=== PATIENT | female | born 1995 | race Caucasian/White ===

== ENCOUNTER 2021-06-05 08:41 | Emergency (ER) | payer BC ==
[~2021-06-05] VITALS: Ht 175.3 cm; Wt 120.2 kg
--- NOTE | 2021-06-05 09:59 | PHYS DOC ---
Past History Additional Past Medical Histor: lupus, fibromyalgia Past Surgical History: , Tonsillectomy Alcohol Use: None General Adult EDM: Chief Complaint: COUGH HPI: HPI: Patient is a 25 year old female who presents with cough x1 week. Productive of white sputum. Over the past 2 days has had increasing shortness of breath and chest tightness. She also complains of sinus congestion and mild sore throat. No fevers or chills she is also had some diarrhea. No loss of taste or smell. 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 She is not vaccinated for Covid. Her has been having diarrheal spells and abdominal cramping at home. not on ocps no new leg swelling. no immobilization. No recent surgeries. Review of Systems: Review of Systems: Constitutional: Denies fever or chills Eyes: Denies change in visual acuity HENT: + nasal congestion and sore throat Respiratory: + cough and shortness of breath Cardiovascular: + chest tightness. Denies edema GI: Denies abdominal pain, nausea, vomiting, bloody stools. + diarrhea : Denies dysuria Musculoskeletal: Denies back pain or joint pain Integument: Denies rash Neurologic: Denies headache, focal weakness or sensory changes Endocrine: Denies polyuria or polydipsia Lymphatic: Denies swollen glands Psychiatric: Denies depression or anxiety Family History: Family History: No pertinent family hx Physical Exam: PE: Constitutional: Well developed, well nourished, no acute distress, non-toxic appearance. [] HENT: Sounds congested. Normocephalic, atraumatic, bilateral external ears normal, oropharynx moist, no oral exudates, nose normal. [] Eyes: PERRLA, EOMI, conjunctiva normal, no discharge. [] Neck: Normal range of motion, no tenderness, supple, no stridor. [] Cardiovascular:Heart rate regular rhythm, no murmur [] Lungs & Thorax: Bilateral breath sounds clear to auscultation [] Abdomen: Bowel sounds normal, soft, no tenderness, no masses, no pulsatile masses. [] Skin: Warm, dry, no erythema, no rash. [] Back: No tenderness, no CVA tenderness. [] Extremities: No tenderness, no cyanosis, no clubbing, ROM intact, no edema. [] Neurologic: Alert and oriented X 3, normal motor function, normal sensory function, no focal deficits noted. [] Psychologic: Affect normal, judgement normal, mood normal. [] Current Patient Data: Vital Signs: Vital Signs Date Time Temp Pulse Resp B/P (MAP) Pulse Ox O2 Delivery O2 Flow Rate FiO2 06/05/21 09:01 98.5 99 18 146/96 98 Room Air EKG: EKG: Sinus rhythm. Rate 80. Inferior Q waves. No acute ischemic changes. [] Radiology/Procedures: Radiology/Procedures: [] Impressions: [address] [address] IMAGING REPORT Signed PATIENT: MARY SPRING ACCOUNT: [id number] : 1995 LOCATION: ER AGE: 25 SEX: F EXAM STATUS: REG ER ORD. PHYSICIAN: YUSEF BARRERA MD REASON: sob, productive cough PROCEDURE: CHEST AP ONLY XR CHEST 1V History: Reason: sob, productive cough / Spl. Instructions: / History: Comparison: None. Findings: No consolidation or pleural effusion. Normal heart size. No pneumothorax. Impression: 1. No acute cardiopulmonary process. Electronically signed by: Aamir Sin DO (06/05/2021 10:15 AM) [id number] DICTATED AND SIGNED BY: AAMIR SIN DO DATE: 06/05/21 1015 CC: YUSEF BARRERA MD; CATY PRESLEY PAC ~MTH0 0 Heart Score: C/O Chest Pain: Yes HEART Score for Chest Pain: HEART Score for Chest Pain Response (Comments) Value History Slighlty/Non-Suspicious 0 ECG Nonspecific Repolarizatio 1 Age < 45 0 Risk Factors No Risk Factors 0 Troponin < Normal Limit 0 Total 1 Risk Factors: Risk Factors: DM, Current or recent (<one month) smoker, HTN, HLP, family history of CAD, obesity. Risk Scores: Score 0 - 3: 2.5% MACE over next 6 weeks - Discharge Home Course & Med Decision Making: Course & Med Decision Making Pertinent Labs and Imaging studies reviewed. (See chart for details) Patient is a 25-year-old female with 1 week of cough, congestion, sore throat. Over the past couple of days has had some increasing shortness of breath and chest tightness. On arrival is afebrile, hemodynamically stable. Satting well on room air. Normal work of breathing on examination. Lungs are clear to auscultation and radiographically on chest x-ray. Overall is well-appearing. CBC, CMP normal. EKG shows inferior Q waves, so troponin was added and is negative. Heart score is 1. Very low risk for ACS. Do not feel that she requires admission for chest pain work-up. Covid swab is sent and is pending at time of discharge. Patient return precautions reviewed. [employer] Disclaimer: [employer] Disclaimer: This electronic medical record was generated, in whole or in part, using a voice recognition dictation system. Departure Departure: Disposition: HOME / SELF CARE / HOMELESS Condition: IMPROVED Referrals: PCP,NO (PCP) Please schedule appoint with your PCP Additional Instructions: Your chest x-ray, labs, vital signs, and exam are very reassuring. You likely have a viral process. Her Covid test is pending. Please self isolate until you have the results of this test. Please follow-up with your primary care doctor. If you have worsening shortness of breath, chest pain, or other new/concerning symptoms please return to the emergency department for reevaluation. YUSEF BARRERA MD Jun 05, 2021 09:59
--- NOTE | 2021-06-05 10:18 | RAD ---
XR CHEST 1V History: Reason: sob, productive cough / Spl. Instructions: / History: Comparison: None. Findings: No consolidation or pleural effusion. Normal heart size. No pneumothorax. Impression: 1. No acute cardiopulmonary process. Electronically signed by: Aamir Sin DO (06/05/2021 10:15 AM) [id number]
[2021-06-05 10:54] LABS: BASO % 1 % (0-3); EOS # 0.1 x10^3/uL (0.0-0.7); EOS % 1 % (0-3); HEMATOCRIT 39.6 % (36.0-47.0); HEMOGLOBIN 13.3 g/dL (12.0-15.5); LYMPH # 1.1 x10^3/uL (1.0-4.8); LYMPH % 21 % (24-48); MEAN CORPUSCULAR HEMOGLOBIN 30 pg (25-35); MEAN CORPUSCULAR HGB CONC 34 g/dL (31-37); MEAN CORPUSCULAR VOLUME 89 fL (79-100); MONO # 0.6 x10^3/uL (0.0-1.1); MONO % 12 % (0-9); NEUT # 3.4 x10^3uL (1.8-7.7); NEUT % 66 % (31-73); PLATELET COUNT 293 x10^3/uL (140-400); RED BLOOD COUNT 4.46 x10^6/uL (3.50-5.40); RED CELL DISTRIBUTION WIDTH 14.8 % (11.5-14.5); WHITE BLOOD COUNT 5.1 x10^3/uL (4.0-11.0)
--- NOTE | 2021-06-05 11:00 | EKG ---
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
[2021-06-05 11:03] LABS: CALCIUM 8.8 mg/dL (8.5-10.1); CREATININE 0.9 mg/dL (0.6-1.0); GFR 75.7; POTASSIUM 4.5 mmol/L (3.5-5.1)
[2021-06-05 11:09] LABS: ALBUMIN 3.3 g/dL (3.4-5.0); ALBUMIN/GLOBULIN RATIO 0.8 (1.0-1.7); TOTAL BILIRUBIN 0.1 mg/dL (0.2-1.0); TOTAL PROTEIN 7.7 g/dL (6.4-8.2)
[2021-06-05 11:56] VITALS: BP 146/93
== END 2021-06-05 12:20 | disposition home or self-care (01) ==
LOC: ER 08:41
DX: U07.1 COVID-19 (principal); R19.7 Diarrhea, unspecified; M79.7 Fibromyalgia; Z98.890 Other specified postprocedural states
CPT/HCPCS: 36415; 71045; 80053; 84484; 85025; 93005; 99285; C9803; U0003

== ENCOUNTER 2021-12-30 15:27 | Emergency (ER) | payer BC ==
[~2021-12-30] VITALS: Ht 175.3 cm; Wt 120.2 kg
[2021-12-30] MEDS ORDERED: ONDANSETRON PF 4 MG/2 ML VIAL. ONE (15:42)
[2021-12-30] MEDS ORDERED: IV NORMAL SALINE 1,000ML 1,000 ML IV ONE ×2 (16:00→19:15)
--- NOTE | 2021-12-30 16:00 | PHYS DOC ---
Past History Additional Past Medical Histor: lupus, fibromyalgia (FIDENCIO COLES DO) Past Surgical History: , Tonsillectomy (FIDENCIO COLES DO) Alcohol Use: None (FIDENCIO COLES DO) Adult General Chief Complaint Chief Complaint: MULTIPLE COMPLAINTS HPI HPI Patient is a 26-year-old female presenting via POV for multiple complaints. First, she fears she is and she is she has unknown last day menstrual period. She is requesting evaluation for this today. Also reports that she has just not been feeling right with tension type headache, nausea, and intermittent chest pain that has been on and off all day today with generalized fatigue and malaise. She also had an episode of nonbloody nonbilious emesis which is obviously not normal for her. She states that time she is also had tingling in her legs. Symptoms have been ongoing for several hours which concerned her and prompting transport to our ER for evaluation. Patient at first denied any medical issues, no medications on a daily basis. 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 She has never had a heart attack or other concerning sequelae from lupus, no other noteworthy events. Denies alcohol tobacco or illicit drug abuse (FIDENCIO COLES DO) Review of Systems Review of Systems Fourteen body systems of review of systems have been reviewed. See HPI for pertinent positives and negative responses, other gary all other systems are negative, non-pertinent or non-contributory (FIDENCIO COLES DO) Current Medications Current Medications Current Medications Medications (Trade) Dose Ordered Sig/Sean Start Time Stop Time Status Last Admin Dose Admin Ondansetron HCl (Zofran) 4 mg STK-MED ONCE 12/30/21 15:42 12/30/21 15:43 DC (FIDENCIO COLES DO) Physical Exam Physical Exam Constitutional: Well developed, well nourished and obese, no acute distress, non-toxic appearance. HENT: Normocephalic, atraumatic, bilateral external ears normal, oropharynx dry with poor dentition, no oral exudates, nose normal. Eyes: PERRLA, EOMI, conjunctiva normal, no discharge. Neck: Normal range of motion, no tenderness, supple, no stridor. Cardiovascular: Heart rate regular, sinus rhythm, no murmurs rubs or gallops Lungs & Thorax: Bilateral breath sounds clear to auscultation Abdomen: Bowel sounds normal, soft, no tenderness, no masses, no pulsatile masses. Nonsurgical abdomen, no peritoneal signs Skin: Warm, dry, no erythema, no rash. Back: No tenderness, no CVA tenderness. Extremities: No tenderness, no cyanosis, no clubbing, ROM intact, no edema. Neurologic: Alert and oriented X 3, grossly normal motor & sensory function, no focal deficits noted. Psychologic: Odd affect, depressed mood (FIDENCIO COLES DO) EKG EKG EKG ordered and interpreted by myself at 1546 hrs. as sinus tachycardia at 120 bpm, prolonged QTC at 514 otherwise unremarkable intervals, no axis deviation, T wave inversion noted in lead III and aVF, no acute ischemic findings, no STEMI (FIDENCIO COLES DO) Radiology/Procedures Radiology/Procedures [] (FIDENCIO COLES DO) Radiology/[place] [address] IMAGING REPORT Signed PATIENT: MARY SPRING ACCOUNT: [id number] : 1995 LOCATION: ER AGE: 26 SEX: F EXAM STATUS: REG ER ORD. PHYSICIAN: FIDENCIO COLES DO REASON: Chest pain PROCEDURE: CHEST AP ONLY EXAM: CHEST ONE VIEW. HISTORY: Chest pain. COMPARISON: 06/05/2021. FINDINGS: A frontal view of the chest is obtained. There are no confluent infiltrates. There is no pneumothorax or pleural effusion. The heart is not enlarged. IMPRESSION: 1. No confluent infiltrates. Electronically signed by: Elizabeth Menon MD (12/30/2021 6:12 PM) [id number] DICTATED AND SIGNED BY: YUSEF MENON MD DATE: 12/30/211810 CC: FIDENCIO COLES DO; CATY PRESLEY PAC ~MTH0 0 (ANDRES ROBERTSON MD) Heart Score C/O Chest Pain: Yes HEART Score for Chest Pain: HEART Score for Chest Pain Response (Comments) Value History Slighlty/Non-Suspicious 0 ECG Normal 0 Age < 45 0 Risk Factors No Risk Factors 0 Troponin < Normal Limit 0 Total 0 Risk Factors: Risk Factors: DM, Current or recent (<one month) smoker, HTN, HLP, family history of CAD, obesity. Risk Scores: Risk Factors: DM, Current or recent (<one month) smoker, HTN, HLP, family history of CAD, obesity. (FIDENCIO COLES DO) Course & Med Decision Making Course & Med Decision Making Airway patent, breathing unlabored, patient tachycardic and hyperventilating on arrival otherwise hemodynamically stable HPI and physical exam obtained, IV access obtained to proceed diagnostic work-up and patient had vagal episode during blood draw turning pale and passing out with subsequent hypotensive episode. This was self-limited in nature and self resolved and several seconds without trauma, fall etc. Subsequent diagnostic work-up obtained and pending at time of my shift ending. I gave comprehensive signout to oncoming physician, please defer to Dr. Robertson's documentation regarding future care of patient in ER setting (FIDENCIO COLES DO) Course & Med Decision Making See Dr. Coles chart for details prior shift change. Impression: 1. Dehydration 2. Viral Syndrome Push fluids and take tylenol and ibuprofen for discomfort. Follow up with primary. Return if any concerns. (ANDRES ROBERTSON MD) Dragon Disclaimer Dragon Disclaimer This electronic medical record was generated, in whole or in part, using a voice recognition dictation system. (FIDENCIO COLES DO) Departure Departure: Disposition: 01 HOME / SELF CARE / HOMELESS Condition: STABLE Referrals: CATY PRESLEY PAC (PCP) Dragon Disclaimer This chart was dictated in whole or in part using Voice Recognition software in a busy, high-work load, and often noisy Emergency Department environment. It may contain unintended and wholly unrecognized errors or omissions. (ANDRES ROBERTSON MD) Dragon Disclaimer This chart was dictated in whole or in part using Voice Recognition software in a busy, high-work load, and often noisy Emergency Department environment. It may contain unintended and wholly unrecognized errors or omissions. (FIDENCIO COLES DO) Dragon Disclaimer This chart was dictated in whole or in part using Voice Recognition software in a busy, high-work load, and often noisy Emergency Department environment. It may contain unintended and wholly unrecognized errors or omissions. (ANDRES ROBERTSON MD) Dragon Disclaimer This chart was dictated in whole or in part using Voice Recognition software in a busy, high-work load, and often noisy Emergency Department environment. It may contain unintended and wholly unrecognized errors or omissions. (FIDENCIO COLES DO) FIDENCIO COLES DO Dec 30, 2021 16:00 ANDRES ROBERTSON MD Dec 30, 2021 18:23
--- NOTE | 2021-12-30 16:09 | EKG ---
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
[2021-12-30] MEDS ORDERED: ONDANSETRON PF 4 MG/2 ML VIAL. IVP ONE (16:30)
[2021-12-30 16:53] LABS: BASO % 0 % (0-3); EOS % 0 % (0-3); HEMATOCRIT 41.5 % (36.0-47.0); HEMOGLOBIN 13.9 g/dL (12.0-15.5); LYMPH # 0.8 x10^3/uL (1.0-4.8); LYMPH % 10 % (24-48); MEAN CORPUSCULAR HEMOGLOBIN 30 pg (25-35); MEAN CORPUSCULAR HGB CONC 34 g/dL (31-37); MEAN CORPUSCULAR VOLUME 89 fL (79-100); MONO # 0.4 x10^3/uL (0.0-1.1); MONO % 6 % (0-9); NEUT # 6.4 x10^3uL (1.8-7.7); NEUT % 84 % (31-73); PLATELET COUNT 258 x10^3/uL (140-400); RED BLOOD COUNT 4.64 x10^6/uL (3.50-5.40); WHITE BLOOD COUNT 7.6 x10^3/uL (4.0-11.0)
[2021-12-30 17:07] LABS: CALCIUM 8.3 mg/dL (8.5-10.1); CREATININE 0.8 mg/dL (0.6-1.0); POTASSIUM 3.9 mmol/L (3.5-5.1)
--- NOTE | 2021-12-30 18:14 | RAD ---
EXAM: CHEST ONE VIEW. HISTORY: Chest pain. COMPARISON: 06/05/2021. FINDINGS: A frontal view of the chest is obtained. There are no confluent infiltrates. There is no pneumothorax or pleural effusion. The heart is not en larged. IMPRESSION: 1. No confluent infiltrates. Electronically signed by: Elizabeth Menon MD (12/30/2021 6:12 PM) [id number]
[2021-12-30] MEDS ORDERED: KETOROLAC 30 MG/ML VIAL. IVP ONE (19:00)
[2021-12-30 19:10] LABS: INFLUENZA A PATIENT NEGATIVE (NEGATIVE); INFLUENZA B PATIENT NEGATIVE (NEGATIVE)
[2021-12-30 20:00] VITALS: BP 107/60
[2021-12-30 20:27] LABS: BACTERIA,URINE 0 /HPF (0-FEW); CLARITY,URINE CLEAR; COLOR,URINE YELLOW; GLUCOSE,URINE NEG (NEG); NITRITE,URINE NEG (NEG); RBC,URINE 0 /HPF (0-2); SQUAMOUS EPITHELIAL CELL,UR FEW /LPF; UROBILINOGEN,URINE 0.2 mg/dL (0.2 mg/dL); WBC,URINE 0 /HPF (0-4)
== END 2021-12-30 20:45 | disposition home or self-care (01) ==
LOC: ER 15:27
DX: E86.0 Dehydration (principal); B34.9 Viral infection, unspecified; Z20.822 Contact with and (suspected) exposure to COVID-19
CPT/HCPCS: 36415; 71045; 80048; 81001; 81025; 82947; 84484; 84702; 85025; 87428; 93005; 96361; 96374; 96375; 99285; J1885; J2405; J7030; 87426